=== PATIENT | male | born 1950 | race Caucasian/White ===

== ENCOUNTER 2018-10-05 06:27 | Day surgery (SDC) | payer MEDICARE ==
[2018-10-05] MEDS ORDERED: Sodium Chloride 0.9% 1,000 ML IV SCH (07:00)
[2018-10-05] MEDS ORDERED: Propofol 200 MG/20 ML SDV ONE (07:35)
[2018-10-05] MEDS ORDERED: Midazolam 1 MG/ML 2 ML SDV ONE (07:35)
[2018-10-05] MEDS ORDERED: fentaNYL 100 MCG/2 ML SDV ONE (07:35)
[2018-10-05 10:24] VITALS: BP 123/70
--- NOTE | 2018-10-05 13:47 | OR ---
DATE OF PROCEDURE: 10/05/2018 SURGEON: Issa Walsh MD PROCEDURE: Colonoscopy. FINDINGS: 1. Cecal type polyp, biopsied using cold biopsy forceps. 2. Ascending colon type polyp, biopsied using cold biopsy forceps. 3. Polypoid-type lesion at anastomosis site. COMPLICATIONS: None. DRIVE IN TELLER: None. ANESTHESIA: MAC. PREOPERATIVE DIAGNOSIS: History of colorectal cancer. POSTOPERATIVE DIAGNOSIS: History of colorectal cancer. RISKS: Risks, benefits, alternatives, and limitations including, but not limited to infection, bleeding, and perforation were explained to the patient, who wished to proceed. PROCEDURE IN DETAIL: The patient was placed in left lateral decubitus position. Digital rectal exam was performed, without abnormality. The scope was introduced and advanced atraumatically. This was advanced to the cecum itself. The appendiceal orifice was identified and photo was taken. The patient had 3 polypoid-type lesions. They were not consistent with typically seen polyps. These were biopsied using cold biopsy forceps. At the anastomosis site, there was a similar type plaque-like lesion. This was also biopsied using cold biopsy forceps. On retroflexion, no abnormalities were noted. The patient tolerated the procedure well. Issa Walsh MD /[id number]
== END 2018-10-05 09:40 | disposition home or self-care (01) ==
LOC: JP.SDS 06:27
PROVIDERS: ATTEND Surgery
DX: Z12.11 Encounter for screening for malignant neoplasm of colon (principal); D12.0 Benign neoplasm of cecum; D12.2 Benign neoplasm of ascending colon; D12.3 Benign neoplasm of transverse colon; Z85.038 Personal history of other malignant neoplasm of large intestine
CPT/HCPCS: 45380; J2250; J2704; J3010; J7030; 88305